=== PATIENT | male | born 1965 | race African-American/Black ===

== ENCOUNTER 2022-01-27 00:41 | Emergency (ER) | payer OTHER, SELFPAY ==
--- NOTE | ~2022-01-27 | XR_ITS ---
EXAMINATION: XR CHEST CLINICAL INFORMATION: Low suspicion for pulmonary edema. COMPARISON: None TECHNIQUE: Frontal view of the chest was obtained. FINDINGS: The lungs are well expanded. There is no focal consolidation, edema, or effusion. No pneumothorax. The cardiomediastinal silhouette is within normal limits. No acute osseous abnormality. XR/XR chest 1V IMPRESSION: No acute pulmonary finding.
--- NOTE | 2022-01-27 01:05 | ECG_ITS ---
Test Reason : AFIB Blood Pressure : / mmHG Vent. Rate : 071 BPM Atrial Rate : 071 BPM P-R Int : 158 ms QRS Dur : 094 ms QT Int : 404 ms P-R-T Axes : 063 057 064 degrees QTc Int : 439 ms Normal sinus rhythm Minimal voltage criteria for LVH, may be normal variant ( Sokolow-Garcia ) Borderline ECG No previous ECGs available Referred By: Deisy Neri Electronically Signed By:ZAYNAB MAHAN
[2022-01-27 01:08] VITALS: BP 108/62; BP 144/93; PULSE 149; PULSE 150; RESP 14; O2SAT 98; BMI 27.2
[2022-01-27] MEDS: 0.9 % Sodium Chloride 1,000 ML 999 ML IVCONT (01:27)
--- NOTE | 2022-01-27 01:29 | ED_ITS ---
HPI - Chest Pain General Chief Complaint: Chest Pain Stated Complaint: palpatations Time Seen by Provider: 01/27/22 01:04 Source: patient and EMS Mode of arrival: EMS Limitations: no limitations History of Present Illness HPI narrative: Patient comes to the emergency room complaining of palpitations that started 15 minutes prior to arrival. When EMS arrived, patient was complaining of ongoing palpitations, no chest pain or shortness of breath. According to the patient, this is the 1st time that he has the sensation. EMS did an EKG, showed atrial fibrillation with a heart rate in the 180s. Patient was given 20 mg Cardizem IV and 0.5 L of normal saline. When patient arrived to the emergency room he was s till in atrial fibrillation, heart rate between 120 and 160, blood pressure in the low 100s. Related Data Previous Rx's Medication Instructions Recorded apixaban 5 mg tablet (Eliquis) 5 mg PO BID #60 tabs 01/27/22 Allergies Allergy/AdvReac Type Severity Reaction Status Date / Time No Known Allergies Allergy Verified 01/27/22 01:04 Review of Systems 2 Review of Systems: Constitutional : No Weight loss, No Fever, No Chills, No Night Sweats, No Fatigue, No Malaise ENT/Mouth : No Hearing loss, No Ear Pain, No Nasal Congestion, No Sinus Pain, No Hoarseness, No sore throat, No Rhinorrhea, No Swallowing Difficulty Eyes: No Eye Pain, No Swelling, No Redness, No Foreign Body, No Discharge, No Vision Changes Cardiovascular : No Chest Pain, No SOB, No Dyspnea on Exertion, No Orthopnea, No Edema, complaining of palpitations Respiratory : No Cough, No Sputum, No Wheezing, No Smoke Exposure, No Dyspnea Gastrointestinal : No Nausea, No Vomiting, No Diarrhea, No Constipation, No abdominal Pain, No Hematochezia, No Melena Genitourinary : no irregular bleeding, No Dysuria, No Urinary Frequency, No Hematuria, No Urinary Incontinence, No Urgency, No Flank Pain, No Urinary Flow Changes, No Hesitancy Musculoskeletal : No joint pain, No Myalgias, No Joint Swelling Skin : No Skin Lesions, No rash Neuro : No Weakness, No Numbness, No Paresthesias, No Loss of Consciousness, No Dizziness, No Headache Psych : No Anxiety/Panic, No Depression, No SI/HI/AH/VH, No Social Issues, Heme/Lymph: No Bruising, No Bleeding,No Lymphadenopathy Endocrine : No Polyuria, No Polydipsia, No Temperature Intolerance, complaining of lumps in his thyroid, has surgery scheduled in approximately a month [facility] Past Medical History Medical History (Updated 01/27/22 @ 01:35 by Deisy Neri MD) Atrial fibrillation Diet-controlled diabetes mellitus Hypertension Social History Social History Advance Directives: Yes Advance Directives Information Provided: No Advance Directives on File: No Physical Exam Vital Signs: Vital Signs: Last Vital Signs Pulse 66 01/27/22 02:42 Resp 18 01/27/22 02:42 BP 143/96 H 01/27/22 02:42 Pulse Ox 98 01/27/22 02:42 O2 Del Method 01/27/22 02:42 BMI result Body Mass Index 27.2 Const: Other: Appearance: Alert. Oriented X3. No acute distress. Eyes: Pupils equal, round and reactive to light. ENT: Pharynx normal. Neck: Normal inspection. Neck supple. No lymph nodes noted. No crepitus CVS: Tachycardic, heart rate approximately 160, irregularly irregular, Normal S1 and S2 Respiratory: No respiratory distress. Breath sounds normal. No Wheezing. No rales Abdomen: Soft and nontender. No rigidity. No distention. Skin: Skin warm and dry. Normal skin color. Normal skin turgor. Extremities: No lower extremity edema. No Lacerations. No Rash Neuro: Oriented X 3. No motor deficit. No sensory deficit. Moving all extremities. No slurred speech. CN 2 through 12 grossly intact Psych: calm, cooperative, normal affect Course Course Course Narrative: Attacks were preparing to do the 1st EKG, patient converted into sinus rhythm. EKG taken shows sinus rhythm, occasional PVCs, heart rate 71, no ST segment depressions or elevations, QTC 439. Patient no longer having palpitations, blood pressure 144/93. All of patient's labs are pending. Patient's CHADS2 Vasc 2 score is 2. I discussed with the patient the risks versus benefits of anticoagulation. At this time, patient would like to have his anticoagulation medications sent to the pharmacy, but states that he needs to do some research over the next few hours when he gets home and discuss it with his family and then decide if he is going to pick it up. Patient will be given 1 dose of aspirin here in the emergency room. MDM - Chest Pain Lab Data Result diagrams: 01/27/22 01:32 01/27/22 01:32 Labs: Lab Results 01/27/22 01/27/22 01/27/22 Range/Units 01:31 01:31 01:31 WBC (4.8-10.8) X10*3/uL RBC (4.60-5.80) X10*6/uL Hgb (14.0-18.0) g/dl Hct (42.0-52.0) % MCV (80.0-98.0) fL MCH (27.0-33.0) pg MCHC (31.0-36.0) g/dl RDW (11.0-16.0) % Plt Count (160-400) X10*3/uL MPV (9.4-12.4) fL Immature Gran % (Auto) (0.0-0.4) % Neut % (Auto) (45-73) % Lymph % (Auto) (20-40) % [place] % (Auto) (2-11) % Eos % (Auto) (0-4) % Baso % (Auto) (0-2) % Lymph # (Auto) (1.2-4.9) X10*3/uL [place] # (Auto) (0.1-1.2) X10*3/uL Eos # (Auto) (0.0-0.4) X10*3/uL Baso # (Auto) (0.0-0.2) X10*3/uL Abs Immat Gran (auto) (0.00-0.03) X10*3/uL Absolute Neuts (auto) (2.0-8.3) x10*3/uL Absolute Nucleated RBC (0.0-0.012) X10*3/uL Nucleated RBC % (auto) (0.0-0.2) /100WBC PT 12.3 (10.0-13.1) SEC INR 1.1 (0.9-1.1) APTT (26.0-36.4) SEC Sodium (135-145) mmol/L Potassium (3.3-5.1) mmol/L Chloride (96-108) mmol/L Carbon Dioxide (22-29) mmol/L Anion Gap (12-20) BUN (9-16) mg/dL Creatinine (0.5-1.4) mg/dL Estim Creat Clear Calc Estimated GFR Random Glucose (60-115) mg/dL Calcium (8.4-10.2) mg/dL Magnesium (1.6-2.6) mg/dL Total Bilirubin (0.0-1.0) mg/dL Direct Bilirubin (0.0-0.5) mg/dL AST (5-37) U/L ALT (0-40) U/L Alkaline Phosphatase (39-117) U/L Troponin I High Sens (<3.5-35.0) ng/L B-Natriuretic Peptide 17 (<100) pg/mL Total Protein (6.5-8.0) g/dL Albumin (3.5-5.0) g/dL TSH 4.36 H (0.32-4.0) uIU/mL Free T4 1.26 (0.71-1.85) ng/dL Urine Color Urine Appearance Urine pH (5.0-9.0) Ur Specific [place] (1.005-1.025) Urine Protein (Neg-Trace) mg/dL Urine Glucose (UA) (Negative) mg/dL Urine Ketones (Negative) mg/dL Urine Blood (Negative) Urine Nitrite (Negative) Ur Leukocyte Esterase (Negative) Urine Opiates Screen (Not Detect) Urine Fentanyl Screen (Not Detect) Ur Barbiturates Screen (Not Detect) Ur Phencyclidine Scrn (Not Detect) Ur Amphetamines Screen (Not Detect) U Benzodiazepines Scrn (Not Detect) Urine Cocaine Screen (Not Detect) U Marijuana (THC) Screen (Not Detect) COVID-19 (BRANDI) (Negative) COVID-19 Clin Com 01/27/22 01/27/22 01/27/22 Range/Units 01:32 01:32 01:32 WBC 9.8 (4.8-10.8) X10*3/uL RBC 4.83 (4.60-5.80) X10*6/uL Hgb 14.3 (14.0-18.0) g/dl Hct 41.7 L (42.0-52.0) % MCV 86.3 (80.0-98.0) fL MCH 29.6 (27.0-33.0) pg MCHC 34.3 (31.0-36.0) g/dl RDW 13.2 (11.0-16.0) % Plt Count 379 (160-400) X10*3/uL MPV 9.4 (9.4-12.4) fL Immature Gran % (Auto) 0.3 (0.0-0.4) % Neut % (Auto) 56.7 (45-73) % Lymph % (Auto) 33.3 (20-40) % [place] % (Auto) 7.2 (2-11) % Eos % (Auto) 1.9 (0-4) % Baso % (Auto) 0.6 (0-2) % Lymph # (Auto) 3.3 (1.2-4.9) X10*3/uL [place] # (Auto) 0.7 (0.1-1.2) X10*3/uL Eos # (Auto) 0.2 (0.0-0.4) X10*3/uL Baso # (Auto) 0.1 (0.0-0.2) X10*3/uL Abs Immat Gran (auto) 0.03 (0.00-0.03) X10*3/uL Absolute Neuts (auto) 5.6 (2.0-8.3) x10*3/uL Absolute Nucleated RBC 0.000 (0.0-0.012) X10*3/uL Nucleated RBC % (auto) 0.0 (0.0-0.2) /100WBC PT (10.0-13.1) SEC INR (0.9-1.1) APTT 34.4 (26.0-36.4) SEC Sodium 141 (135-145) mmol/L Potassium 3.4 (3.3-5.1) mmol/L Chloride 104 (96-108) mmol/L Carbon Dioxide 26 (22-29) mmol/L Anion Gap 14 (12-20) BUN 14 (9-16) mg/dL Creatinine 0.81 (0.5-1.4) mg/dL Estim Creat Clear Calc 100.8 Estimated GFR > 60 Random Glucose 109 (60-115) mg/dL Calcium 8.9 (8.4-10.2) mg/dL Magnesium 2.0 (1.6-2.6) mg/dL Total Bilirubin 0.7 (0.0-1.0) mg/dL Direct Bilirubin 0.2 (0.0-0.5) mg/dL AST 19 (5-37) U/L ALT 21 (0-40) U/L Alkaline Phosphatase 90 (39-117) U/L Troponin I High Sens (<3.5-35.0) ng/L B-Natriuretic Peptide (<100) pg/mL Total Protein 7.3 (6.5-8.0) g/dL Albumin 4.1 (3.5-5.0) g/dL TSH (0.32-4.0) uIU/mL Free T4 (0.71-1.85) ng/dL Urine Color Urine Appearance Urine pH (5.0-9.0) Ur Specific [place] (1.005-1.025) Urine Protein (Neg-Trace) mg/dL Urine Glucose (UA) (Negative) mg/dL Urine Ketones (Negative) mg/dL Urine Blood (Negative) Urine Nitrite (Negative) Ur Leukocyte Esterase (Negative) Urine Opiates Screen (Not Detect) Urine Fentanyl Screen (Not Detect) Ur Barbiturates Screen (Not Detect) Ur Phencyclidine Scrn (Not Detect) Ur Amphetamines Screen (Not Detect) U Benzodiazepines Scrn (Not Detect) Urine Cocaine Screen (Not Detect) U Marijuana (THC) Screen (Not Detect) COVID-19 (BRANDI) (Negative) COVID-19 Clin Com 01/27/22 01/27/22 01/27/22 Range/Units 01:32 01:32 01:32 WBC (4.8-10.8) X10*3/uL RBC (4.60-5.80) X10*6/uL Hgb (14.0-18.0) g/dl Hct (42.0-52.0) % MCV (80.0-98.0) fL MCH (27.0-33.0) pg MCHC (31.0-36.0) g/dl RDW (11.0-16.0) % Plt Count (160-400) X10*3/uL MPV (9.4-12.4) fL Immature Gran % (Auto) (0.0-0.4) % Neut % (Auto) (45-73) % Lymph % (Auto) (20-40) % [place] % (Auto) (2-11) % Eos % (Auto) (0-4) % Baso % (Auto) (0-2) % Lymph # (Auto) (1.2-4.9) X10*3/uL [place] # (Auto) (0.1-1.2) X10*3/uL Eos # (Auto) (0.0-0.4) X10*3/uL Baso # (Auto) (0.0-0.2) X10*3/uL Abs Immat Gran (auto) (0.00-0.03) X10*3/uL Absolute Neuts (auto) (2.0-8.3) x10*3/uL Absolute Nucleated RBC (0.0-0.012) X10*3/uL Nucleated RBC % (auto) (0.0-0.2) /100WBC PT (10.0-13.1) SEC INR (0.9-1.1) APTT (26.0-36.4) SEC Sodium (135-145) mmol/L Potassium (3.3-5.1) mmol/L Chloride (96-108) mmol/L Carbon Dioxide (22-29) mmol/L Anion Gap (12-20) BUN (9-16) mg/dL Creatinine (0.5-1.4) mg/dL Estim Creat Clear Calc Estimated GFR Random Glucose (60-115) mg/dL Calcium (8.4-10.2) mg/dL Magnesium (1.6-2.6) mg/dL Total Bilirubin (0.0-1.0) mg/dL Direct Bilirubin (0.0-0.5) mg/dL AST (5-37) U/L ALT (0-40) U/L Alkaline Phosphatase (39-117) U/L Troponin I High Sens < 3.5 (<3.5-35.0) ng/L B-Natriuretic Peptide (<100) pg/mL Total Protein (6.5-8.0) g/dL Albumin (3.5-5.0) g/dL TSH (0.32-4.0) uIU/mL Free T4 (0.71-1.85) ng/dL Urine Color Yellow Urine Appearance Clear Urine pH 7.5 (5.0-9.0) Ur Specific [place] <= 1.005 (1.005-1.025) Urine Protein Negative (Neg-Trace) mg/dL Urine Glucose (UA) Negative (Negative) mg/dL Urine Ketones Negative (Negative) mg/dL Urine Blood Negative (Negative) Urine Nitrite Negative (Negative) Ur Leukocyte Esterase Negative (Negative) Urine Opiates Screen (Not Detect) Urine Fentanyl Screen (Not Detect) Ur Barbiturates Screen (Not Detect) Ur Phencyclidine Scrn (Not Detect) Ur Amphetamines Screen (Not Detect) U Benzodiazepines Scrn (Not Detect) Urine Cocaine Screen (Not Detect) U Marijuana (THC) Screen (Not Detect) COVID-19 (BRANDI) Negative (Negative) COVID-19 Clin Com See Note 01/27/22 Range/Units 01:32 WBC (4.8-10.8) X10*3/uL RBC (4.60-5.80) X10*6/uL Hgb (14.0-18.0) g/dl Hct (42.0-52.0) % MCV (80.0-98.0) fL MCH (27.0-33.0) pg MCHC (31.0-36.0) g/dl RDW (11.0-16.0) % Plt Count (160-400) X10*3/uL MPV (9.4-12.4) fL Immature Gran % (Auto) (0.0-0.4) % Neut % (Auto) (45-73) % Lymph % (Auto) (20-40) % [place] % (Auto) (2-11) % Eos % (Auto) (0-4) % Baso % (Auto) (0-2) % Lymph # (Auto) (1.2-4.9) X10*3/uL [place] # (Auto) (0.1-1.2) X10*3/uL Eos # (Auto) (0.0-0.4) X10*3/uL Baso # (Auto) (0.0-0.2) X10*3/uL Abs Immat Gran (auto) (0.00-0.03) X10*3/uL Absolute Neuts (auto) (2.0-8.3) x10*3/uL Absolute Nucleated RBC (0.0-0.012) X10*3/uL Nucleated RBC % (auto) (0.0-0.2) /100WBC PT (10.0-13.1) SEC INR (0.9-1.1) APTT (26.0-36.4) SEC Sodium (135-145) mmol/L Potassium (3.3-5.1) mmol/L Chloride (96-108) mmol/L Carbon Dioxide (22-29) mmol/L Anion Gap (12-20) BUN (9-16) mg/dL Creatinine (0.5-1.4) mg/dL Estim Creat Clear Calc Estimated GFR Random Glucose (60-115) mg/dL Calcium (8.4-10.2) mg/dL Magnesium (1.6-2.6) mg/dL Total Bilirubin (0.0-1.0) mg/dL Direct Bilirubin (0.0-0.5) mg/dL AST (5-37) U/L ALT (0-40) U/L Alkaline Phosphatase (39-117) U/L Troponin I High Sens (<3.5-35.0) ng/L B-Natriuretic Peptide (<100) pg/mL Total Protein (6.5-8.0) g/dL Albumin (3.5-5.0) g/dL TSH (0.32-4.0) uIU/mL Free T4 (0.71-1.85) ng/dL Urine Color Urine Appearance Urine pH (5.0-9.0) Ur Specific [place] (1.005-1.025) Urine Protein (Neg-Trace) mg/dL Urine Glucose (UA) (Negative) mg/dL Urine Ketones (Negative) mg/dL Urine Blood (Negative) Urine Nitrite (Negative) Ur Leukocyte Esterase (Negative) Urine Opiates Screen Not Detected (Not Detect) Urine Fentanyl Screen Not Detected (Not Detect) Ur Barbiturates Screen Not Detected (Not Detect) Ur Phencyclidine Scrn Not Detected (Not Detect) Ur Amphetamines Screen Not Detected (Not Detect) U Benzodiazepines Scrn Not Detected (Not Detect) Urine Cocaine Screen Not Detected (Not Detect) U Marijuana (THC) Screen POSITIVE H (Not Detect) COVID-19 (BRANDI) (Negative) COVID-19 Clin Com Critical Care Time Critical Care Time Critical Care Time: Yes Total Critical Care Time: 45 Attestation: I have personally provided critical care time. Time includes review of lab data, radiology results, discussion with consultants, and monitoring for potential decompensation. Intervention performed as documented. Discharge Plan Discharge Clinical Impression: Atrial fibrillation with RVR Patient Disposition: Home, Self-Care Instructions: Apixaban (By mouth), A-fib (Atrial Fibrillation) (ED) Additional Instructions: Please follow-up with your primary care physician tomorrow. If you have any worsening or new symptoms, please return to the emergency room or call 911 Prescriptions: New Eliquis 5 mg tablet 5 mg PO BID Qty: 60 0RF Referrals: Oswaldo Garcia MD [Physician] - 2 days Discharge Date/Time: 01/27/22 03:31
[2022-01-27 01:38] LABS: MANUAL DIFF FLAG NO
[2022-01-27 01:39] LABS: Basophils Absolute Auto 0.1 X10*3/uL (0.0-0.2); Basophils Percent Auto 0.6 % (0-2); Eosinophils Absolute Auto 0.2 X10*3/uL (0.0-0.4); Eosinophils Percent Auto 1.9 % (0-4); Hematocrit 41.7 % (42.0-52.0); Hemoglobin 14.3 g/dl (14.0-18.0); Imm Gran Abs Auto 0.03 X10*3/uL (0.00-0.03); Imm Gran Pct Auto 0.3 % (0.0-0.4); Lymphocytes Absolute Auto 3.3 X10*3/uL (1.2-4.9); Lymphocytes Percent Auto 33.3 % (20-40); Mean Corpuscular HGB Conc 34.3 g/dl (31.0-36.0); Mean Corpuscular Hemoglobin 29.6 pg (27.0-33.0); Mean Corpuscular Volume 86.3 fL (80.0-98.0); Mean Platelet Volume 9.4 fL (9.4-12.4); Monocytes Absolute Auto 0.7 X10*3/uL (0.1-1.2); Monocytes Percent Auto 7.2 % (2-11); Neutrophils Absolute Auto 5.6 x10*3/uL (2.0-8.3); Neutrophils Percent Auto 56.7 % (45-73); Platelet Count 379 X10*3/uL (160-400); Red Blood Count 4.83 X10*6/uL (4.60-5.80); Red Cell Distribution Width 13.2 % (11.0-16.0); White Blood Count 9.8 X10*3/uL (4.8-10.8)
[2022-01-27 01:40] LABS: Appearance Urine Clear; Color Urine Yellow; Glucose Urine UA Negative (Negative); Leukocyte Esterase Urine Negative (Negative); Nitrite Urine Negative (Negative); PH 7.5 (5.0-9.0); Specific Gravity - Urine <= 1.005 (1.005-1.025); Urine Blood Negative (Negative); Urine Ketones Negative (Negative); Urine Protein Negative (Neg-Trace)
[2022-01-27 01:47] LABS: INTERNATIONAL NORM RATIO 1.1 (0.9-1.1); Prothrombin Time 12.3 SEC (10.0-13.1)
[2022-01-27 01:49] LABS: Partial Thromboplastin Time 34.4 SEC (26.0-36.4)
[2022-01-27 01:56] LABS: Amphetamine Screen Urine Not Detected (Not Detect); Barbiturates, Urine Not Detected (Not Detect); Benzodiazepines Screen Urine Not Detected (Not Detect); COVID-19 Test Negative (Negative); Cannabinoid Screen Urine POSITIVE (Not Detect); Cocaine Screen Urine Not Detected (Not Detect); Fentanyl, urine Not Detected (Not Detect); Opiate Screen Urine Not Detected (Not Detect); Phencyclidine Screen Urine Not Detected (Not Detect)
[2022-01-27 01:58] LABS: Alanine Aminotransferase 21 U/L (0-40); Albumin Level 4.1 g/dL (3.5-5.0); Alkaline Phosphatase 90 U/L (39-117); Anion Gap 14 (12-20); Aspartate Amino Transferase 19 U/L (5-37); Bilirubin Direct 0.2 mg/dL (0.0-0.5); Bilirubin Total 0.7 mg/dL (0.0-1.0); Blood Urea Nitrogen 14 mg/dL (9-16); Calcium 8.9 mg/dL (8.4-10.2); Carbon Dioxide 26 mmol/L (22-29); Chloride 104 mmol/L (96-108); Creatinine Clr Calc Pharmacy 100.8; Estimated Glomerular Filt Rate > 60; Glucose Random 109 mg/dL (60-115); Potassium 3.4 mmol/L (3.3-5.1); Sodium 141 mmol/L (135-145); Total Protein 7.3 g/dL (6.5-8.0)
[2022-01-27 01:59] LABS: B Type Natriuretic Peptide 17 pg/mL (<100)
[2022-01-27 01:59] LABS: Troponin-I High Sensitivity < 3.5 ng/L (<3.5-35.0)
[2022-01-27 02:00] VITALS: PULSE 78
[2022-01-27 02:18] LABS: TSH reflex Free T4 4.36 uIU/mL (0.32-4.0)
[2022-01-27 02:42] VITALS: BP 143/96; PULSE 66; RESP 18; O2SAT 98
[2022-01-27 02:49] LABS: Free T4 (Free Thyroxine) 1.26 ng/dL (0.71-1.85)
[2022-01-27] MEDS: Aspirin Enteric Coated 325 MG TABLET.DR PO (03:33)
== END 2022-01-27 03:31 | disposition home or self-care (01) ==
PROVIDERS: Emergency Provider Emergency Medicine
DX: I48.20 Chronic atrial fibrillation, unspecified (principal); R07.89 Other chest pain; R00.2 Palpitations; Z20.822 Contact with and (suspected) exposure to COVID-19; Z79.899 Other long term (current) drug therapy
CPT/HCPCS: 36415; 71045; 80048; 80076; 80307; 81003; 83735; 83880; 84439; 84443; 84484; 85025; 85610; 85730; 87635; 93005; 99284

== ENCOUNTER 2023-07-01 21:57 | Emergency (ER) | payer OTHER, SELFPAY ==
--- NOTE | ~2023-07-01 | XR_ITS ---
EXAMINATION: XR CHEST CLINICAL INFORMATION: Chest pain COMPARISON: 01/27/2022 TECHNIQUE: 2 views of the chest were obtained. FINDINGS: There is mild elevation of the left hemidiaphragm posteriorly, similar to prior. No focal consolidation is seen bilaterally. No evidence of pneumothorax, pleural effusion, or pulmonary edema. The cardiomediastinal contour is unremarkable. No acute osseous findings are seen. XR/XR chest 2V IMPRESSION: No acute cardiopulmonary findings.
[2023-07-01 22:30] VITALS: BP 146/98; PULSE 103; RESP 12; TEMP 37.7; O2SAT 95; BMI 26.9
--- NOTE | 2023-07-01 22:36 | ECG_ITS ---
Test Reason : GEN MED Blood Pressure : / mmHG Vent. Rate : 096 BPM Atrial Rate : 096 BPM P-R Int : 150 ms QRS Dur : 076 ms QT Int : 340 ms P-R-T Axes : 055 030 067 degrees QTc Int : 429 ms Normal sinus rhythm Nonspecific T wave abnormality Abnormal ECG When compared with ECG of 27-JAN-2022 01:18, No significant change was found Referred By: Generic ED Physician Electronically Signed By:MARIVEL MCMILLAN
[2023-07-01 23:03] LABS: MANUAL DIFF FLAG NO
[2023-07-01 23:12] LABS: Basophils Percent Auto 0.1 % (0-2); Eosinophils Absolute Auto 0.1 X10*3/uL (0.0-0.4); Eosinophils Percent Auto 1.2 % (0-4); Hematocrit 44.8 % (42.0-52.0); Hemoglobin 15.4 g/dl (14.0-18.0); Imm Gran Abs Auto 0.06 X10*3/uL (0.00-0.03); Imm Gran Pct Auto 0.8 % (0.0-0.4); Lymphocytes Absolute Auto 0.7 X10*3/uL (1.2-4.9); Lymphocytes Percent Auto 8.5 % (20-40); Mean Corpuscular HGB Conc 34.4 g/dl (31.0-36.0); Mean Corpuscular Volume 84.4 fL (80.0-98.0); Mean Platelet Volume 9.6 fL (9.4-12.4); Monocytes Absolute Auto 0.5 X10*3/uL (0.1-1.2); Monocytes Percent Auto 6.6 % (2-11); Neutrophils Absolute Auto 6.4 x10*3/uL (2.0-8.3); Neutrophils Percent Auto 82.8 % (45-73); Platelet Count 373 X10*3/uL (160-400); Red Blood Count 5.31 X10*6/uL (4.60-5.80); Red Cell Distribution Width 14.6 % (11.0-16.0); White Blood Count 7.7 X10*3/uL (4.8-10.8)
[2023-07-01 23:22] LABS: Alanine Aminotransferase 23 U/L (0-40); Albumin Level 4.3 g/dL (3.5-5.0); Alkaline Phosphatase 99 U/L (39-117); Anion Gap 12 (12-20); Aspartate Amino Transferase 17 U/L (5-37); Bilirubin Total 1.1 mg/dL (0.0-1.0); Blood Urea Nitrogen 14 mg/dL (9-16); Carbon Dioxide 26 mmol/L (22-29); Chloride 105 mmol/L (96-108); Creatinine Clr Calc Pharmacy 87.6; Estimated Glomerular Filt Rate > 60; Glucose Random 123 mg/dL (60-115); Lipase 19 U/L (8-78); Potassium 3.7 mmol/L (3.3-5.1); Sodium 139 mmol/L (135-145); Total Protein 7.8 g/dL (6.5-8.0)
[2023-07-01 23:33] LABS: Troponin-I High Sensitivity < 2.7 ng/L (<3.5-35.0)
[2023-07-01 23:35] LABS: IDNOW Serial# 152EDE1D; Influenza A Negative (Negative); Influenza B2 Negative (Negative)
[2023-07-02 00:17] VITALS: BP 123/90; PULSE 96; TEMP 37.8; O2SAT 98
[2023-07-02 00:42] VITALS: PULSE 98
--- NOTE | 2023-07-02 00:44 | PC.NURSE ---
axox4 resports had L. sided cp/DUNN sharp pain yesterday sudden while driving resolved in seconds. overall feels fatigued/chills/1 episode of vomiting in am. pt denies cp/sob/n/v/d/dizziness at this time. reporting lower back pain/L. flank pain/DUNN. pt denies urinary sx. nsr on monitor 98 bpm. resp even and unlabored. pt reports had covid 05/09/23. awaiting primary eval by ed provider. call martin within reach.
--- NOTE | 2023-07-02 00:49 | ED_ITS ---
HPI - General Adult General Chief complaint: General Medical Stated complaint: flank pain, feels off Time Seen by Provider: 07/02/23 00:48 Source: patient Mode of arrival: ambulatory Limitations: no limitations History of Present Illness HPI narrative: Patient with multiple nonspecific complaints complaining of sharp chest pain just prior to arrival low back pain right side and left side earlier vomited once. Patient had COVID last month no cough no shortness of breath pain in the chest lasted only for few seconds ,no fever no chills no cough no palpitation patient has increased stress from his job take medication/ambien to sleep Related Data Previous Rx's Medication Instructions Recorded apixaban 5 mg tablet (Eliquis) 5 mg PO BID #60 tabs 01/27/22 Allergies Allergy/AdvReac Type Severity Reaction Status Date / Time No Known Allergies Allergy Verified 07/01/23 22:30 Review of Systems 2 Review of Systems: Yes all other systems are reviewed and are negative PMFSH Past Medical History Medical History Atrial fibrillation Diet-controlled diabetes mellitus Hypertension Social History Social History Smoked in Last 30 Days: No Use of substances other than those prescribed or required for medical reasons: No Advance Directives: No Advance Directives Information Provided: No Physical Exam ED Vital Signs: Vital Signs - 24 hr 07/01/23 22:30 07/02/23 00:17 07/02/23 00:42 Temperature 99.8 F 100.0 F Pulse Rate 103 H 96 Pulse Rate [Monitor] 98 Respiratory Rate 12 Blood Pressure 146/98 H 123/90 H Pulse Oximetry 95 98 Oxygen Delivery Method Room Air Room Air BMI result Body Mass Index 26.9 Appearance: Alert. Oriented X3. No acute distress. Eyes: PERRLA, No Nystagmus ENT: Pharynx normal. Oral Mucosa moist Neck: Normal inspection. Neck supple. CVS: Normal heart rate and rhythm. Pulses normal. Respiratory: No respiratory distress. Equal air entry bilateral, no wheezing/rales/rhonchi Abdomen: Soft and nontender. Bowel sounds are present, Skin: Skin warm and dry. Normal skin color. Normal skin turgor. Extremities: No lower extremity edema. No calf tenderness Neuro: Oriented X 3. Medical Decision Making Medical Decision Making MDM Narrative: Patient has multiple nonspecific complaints atypical chest pain likely musculoskeletal workup is negative discharge patient home Lab Data [facility] Lab Attestation statement: I reviewed the patient's lab results. 07/01/23 22:58 07/01/23 22:58 Labs: Lab Results 07/01/23 07/02/23 Range/Units 22:58 01:23 WBC 7.7 (4.8-10.8) X10*3/uL RBC 5.31 (4.60-5.80) X10*6/uL Hgb 15.4 (14.0-18.0) g/dl Hct 44.8 (42.0-52.0) % MCV 84.4 (80.0-98.0) fL MCH 29.0 (27.0-33.0) pg MCHC 34.4 (31.0-36.0) g/dl RDW 14.6 (11.0-16.0) % Plt Count 373 (160-400) X10*3/uL MPV 9.6 (9.4-12.4) fL Immature Gran % (Auto) 0.8 H (0.0-0.4) % Neut % (Auto) 82.8 H (45-73) % Lymph % (Auto) 8.5 L (20-40) % [place] % (Auto) 6.6 (2-11) % Eos % (Auto) 1.2 (0-4) % Baso % (Auto) 0.1 (0-2) % Lymph # (Auto) 0.7 L (1.2-4.9) X10*3/uL [place] # (Auto) 0.5 (0.1-1.2) X10*3/uL Eos # (Auto) 0.1 (0.0-0.4) X10*3/uL Baso # (Auto) 0.0 (0.0-0.2) X10*3/uL Abs Immat Gran (auto) 0.06 H (0.00-0.03) X10*3/uL Absolute Neuts (auto) 6.4 (2.0-8.3) x10*3/uL Absolute Nucleated RBC 0.000 (0.0-0.012) X10*3/uL Nucleated RBC % (auto) 0.0 (0.0-0.2) /100WBC Sodium 139 (135-145) mmol/L Potassium 3.7 (3.3-5.1) mmol/L Chloride 105 (96-108) mmol/L Carbon Dioxide 26 (22-29) mmol/L Anion Gap 12 (12-20) BUN 14 (9-16) mg/dL Creatinine 0.91 (0.5-1.4) mg/dL Estim Creat Clear Calc 87.6 Estimated GFR > 60 Random Glucose 123 H (60-115) mg/dL Calcium 9.0 (8.4-10.2) mg/dL Total Bilirubin 1.1 H (0.0-1.0) mg/dL AST 17 (5-37) U/L ALT 23 (0-40) U/L Alkaline Phosphatase 99 (39-117) U/L Troponin I High Sens < 2.7 (<3.5-35.0) ng/L Total Protein 7.8 (6.5-8.0) g/dL Albumin 4.3 (3.5-5.0) g/dL Lipase 19 (8-78) U/L Urine Color Dark Yellow Urine Appearance Clear Urine pH 6.0 (5.0-9.0) Ur Specific [place] >= 1.030 H (1.005-1.025) Urine Protein Trace (Neg-Trace) mg/dL Urine Glucose (UA) Negative (Negative) mg/dL Urine Ketones Trace (Negative) mg/dL Urine Blood Negative (Negative) Urine Nitrite Negative (Negative) Ur Leukocyte Esterase Small (1+) H (Negative) Urine RBC 3-5 H (0-2) /HPF Urine WBC 0-5 (0-5) /HPF Ur Squamous Epith Cells 3-5 (0-2) /HPF Urine Bacteria None Seen (None Seen) Hyaline Casts 0-2 (0-2) /LPF Influenza Type A (IPTER) Negative (Negative) Influenza Type B (PITER) Negative (Negative) Influenza A & B Note See Note Independent Interpretation I performed an independent interpretation of an: EKG Interpretation: Normal sinus rhythm heart rate 96 beats per minute normal interval normal axis no acute ST T wave changes no acute ischemia Discharge Plan Discharge Clinical Impression: Musculoskeletal pain, Anxiety Patient Disposition: Home, Self-Care Instructions: Musculoskeletal Pain (ED), Anxiety (ED) Additional Instructions: Likely you have job stress related anxiety Continue to take your medication, Tylenol/Motrin for pain as needed Prescriptions: No Action Eliquis 5 mg tablet 5 mg PO BID Qty: 60 0RF
[2023-07-02 01:34] LABS: Appearance Urine Clear; Color Urine Dark Yellow; Glucose Urine UA Negative (Negative); Leukocyte Esterase Urine Small (1+) (Negative); Nitrite Urine Negative (Negative); Specific Gravity - Urine >= 1.030 (1.005-1.025); UMIC TRIGGER UACC YES; Urine Blood Negative (Negative); Urine Ketones Trace mg/dL (Negative); Urine Protein Trace mg/dL (Neg-Trace)
[2023-07-02 01:43] LABS: Bacteria Urine None Seen (None Seen); Hyaline Casts Urine 0-2 /LPF (0-2); UACC Culture Trigger YES; WBC Urine 0-5 /HPF (0-5)
[2023-07-02] MEDS: Ibuprofen 600 MG TABLET PO (02:24)
== END 2023-07-02 02:27 | disposition home or self-care (01) ==
PROVIDERS: Emergency Provider Internal Medicine
DX: F41.9 Anxiety disorder, unspecified (principal); M79.18 Myalgia, other site; E11.9 Type 2 diabetes mellitus without complications; I10 Essential (primary) hypertension
CPT/HCPCS: 36415; 71046; 80053; 81001; 83690; 84484; 85025; 87086; 87502; 93005; 99283; 99285

== ENCOUNTER → 2023-07-01 22:36 | Outpatient (BNV) | payer OTHER, SELFPAY | PROVIDERS: Emergency Provider Internal Medicine; Visit Provider Internal Medicine | DX: R94.31 Abnormal electrocardiogram [ECG] [EKG] (principal) | CPT/HCPCS: 93010 ==

== ENCOUNTER 2023-12-19 07:26 | Emergency (ER) | payer MEDICAID, SELFPAY ==
--- NOTE | ~2023-12-19 | XR_ITS ---
EXAMINATION: XR PELVIS CLINICAL INFORMATION: Fell down, right-sided pelvic and hip pain COMPARISON: None available. TECHNIQUE: AP view of the pelvis. FINDINGS: No fracture. Hip joint spaces are maintained. Alignment is anatomic. Sacroiliac joints and pubic symphysis are normal. No abnormal soft tissue calcifications. XR/XR pelvis 1-2V IMPRESSION: Normal pelvis.
--- NOTE | ~2023-12-19 | XR_ITS ---
EXAMINATION: XR LUMBOSACRAL SPINE CLINICAL INFORMATION: Fell down, lumbar spine injury and pain COMPARISON: None available. TECHNIQUE: Three views of the lumbosacral spine. FINDINGS: The visualized lumbar vertebrae show anterior L5 on S1 displacement by 0.8 cm and bilateral L5 pars interarticulares bony defects. Intervertebral disc space is moderately decreased at L5-S1. XR/XR lumbar spine 2-3V IMPRESSION: 1. Grade 2 spondylolisthesis at L5-S1 with bilateral L5 spondylolysis. 2. Moderate L5-S1 degenerative lumbar disc disease. 3. No acute fracture or dislocation of lumbar spine is seen.
[2023-12-19 07:38] VITALS: BP 164/91; PULSE 87; RESP 16; TEMP 36.5; O2SAT 96; BMI 26.6
--- NOTE | 2023-12-19 07:47 | ED.FALL ---
HPI - Fall General Chief Complaint: Fall Stated Complaint: Fall Time Seen by Provider: 12/19/23 07:42 Source: patient Mode of arrival: ambulatory Limitations: no limitations History of Present Illness ED Provider: Remigio Guevara PA-C HPI Narrative: 58-year-old male presents to the ER for evaluation of right lower back pain and right inguinal pain after he tripped and fell while walking down stairs last night around 11:00 o'clock. He states thought he was at the bottom stair when he had 3 or 4 more ago, he states his legs got twisted up and he fell. He reports pain in his right lower back and his right groin since then. He has been ambulatory but this worsens the pain. He denies hitting his head or losing consciousness. He denies any headache or neck pain. No chest pain or abdominal pain. He is not on anticoagulation. He would like an increase in fracture anything. Denies any bowel or bladder incontinence. No trouble urinating. No blood in his urine. MD complaint: fall Onset (ago): hour(s) (8) Fall from: down stairs (#) (3-4) Fall witnessed: no Place fall occurred: home Loss of consciousness: none Prolonged down time: no Symptoms prior to fall: none Context: tripped/slipped Location of injury: back and pelvis Severity: moderate Severity scale (1-10): 6 Quality: aching Associated symptoms (after fall): denies Related Data Home Medications ?Medication ?Instructions ?Recorded ?Confirmed amlodipine 10 mg tablet 10 mg PO DAILY 12/19/23 12/19/23 spironolactone 25 mg tablet 25 mg PO DAILY 12/19/23 12/19/23 Previous Rx's ?Medication ?Instructions ?Recorded apixaban 5 mg tablet (Eliquis) 5 mg PO BID #60 tabs 01/27/22 cyclobenzaprine 10 mg tablet 10 mg PO TID PRN muscle spasm #10 12/19/23 tabs ibuprofen 600 mg tablet 600 mg PO Q8H PRN pain #14 tabs 12/19/23 lidocaine 5 % topical patch 1 patch topical DAILY #15 ea 12/19/23 Allergies Allergy/AdvReac Type Severity Reaction Status Date / Time No Known Allergies Allergy Verified 12/19/23 07:40 Review of Systems Review of Systems: Yes all other systems are reviewed and are negative PMFSH Past Medical History Medical History Atrial fibrillation Diet-controlled diabetes mellitus Hypertension Social History Social History Advance Directives: Yes Advance Directives Information Provided: Yes Advance Directives on File: No Physical Exam Vital Signs: Vital Signs: Last Vital Signs Temp 98.4 F 12/19/23 11:48 Pulse 80 12/19/23 11:48 Resp 16 12/19/23 11:48 BP 167/100 H 12/19/23 11:48 Pulse Ox 98 12/19/23 11:48 O2 Del Method Room Air 12/19/23 11:48 BMI result Body Mass Index 26.6 Appearance: Alert. Oriented X3. No acute distress. Head: normocephalic, atraumatic. Eyes: Pupils equal, round and reactive to light. ENT: Pharynx normal. No tonsillar swelling or exudate. Neck: Normal inspection. Neck supple. CVS: Normal heart rate and rhythm. Pulses normal. Respiratory: No respiratory distress. Breath sounds normal. Abdomen: Soft and nontender. +BS x4 Back: normal inspection, no ecchymosis. mild midline tenderness of the lower lumbar area. soft tissue tenderness of the right lumbar area w/ palpable spasm. Skin: Skin warm and dry. Normal skin color. Normal skin turgor. No rashes. Extremities: No lower extremity edema. No joint swelling. nontender right lateral hip. right proximal medial thigh with mild soft tissue tenderness. compartments are soft and compressible. pain with passive flexion of the right hip. FROM of the right knee and ankle Neuro/psych: Oriented X 3. No motor deficit. No sensory deficit. CN II-XII intact. Normal speech and cognition. Steady gait Medications Administered Discontinued Medications Generic Name Dose Route Start Last Admin Trade Name Freq PRN Reason Stop Dose Admin Acetaminophen 975 mg 12/19/23 11:36 12/19/23 11:43 Acetaminophen 325 Mg Tablet PO 12/19/23 11:37 975 mg ONCE ONE Administration Lidocaine 1 patch 12/19/23 11:36 12/19/23 11:43 Lidocaine 4 % Patch Adh..Patch TRANSDERMA 12/19/23 11:37 1 patch ONCE ONE Administration Protocol Medical Decision Making Medical Decision Making MDM Narrative: 58-year-old male presents to the ER for evaluation of right lower back pain and right groin pain after he tripped and fell down 4 stairs last night 23:00. No head strike or loss of consciousness. No on anticoagulation. He is ambulatory with a steady gait. He has some right lower back tenderness and tenderness of the right inguinal area. No involvement of his testicles or scrotum. Exam is most consistent muscular strain and spasm of the groin, likely lumbar strain. X-rays were done given fall, no acute fractures are noted. X-ray does show some spondylolisthesis, spondylosis in the L5 region. He has some moderate degenerative disc disease as well. We discussed the results of the x-ray and symptomatic management along with need for outpatient follow-up. Will provide prescriptions for NSAIDs, muscle relaxers, Lidoderm patches. Stable for discharge home with outpatient follow-up. Patient agrees with plan all questions were answered. Differential Diagnosis Differential Diagnoses: The differential diagnosis associated with the presentation includes lumbar muscle strain, nerve root compression, radiculopathy, plexopathy, degenerative disc disease, disc herniation, spinal stenosis, sacroiliac joint dysfunction, facet joint injury, inguinal strain Independent Interpretation I performed an independent interpretation of an: Plain X-Ray Interpretation: no acute compression fx or pelvic fx apprecaited, agree w/ radiology read Radiology Impression Discussion of test interpretation with radiology: I have reviewed the radiologist's reading. Radiologist Impression: EXAMINATION: XR LUMBOSACRAL SPINE CLINICAL INFORMATION: Fell down, lumbar spine injury and pain COMPARISON: None available. TECHNIQUE: Three views of the lumbosacral spine. FINDINGS: The visualized lumbar vertebrae show anterior L5 on S1 displacement by 0.8 cm and bilateral L5 pars interarticulares bony defects. Intervertebral disc space is moderately decreased at L5-S1. XR/XR lumbar spine 2-3V IMPRESSION: 1. Grade 2 spondylolisthesis at L5-S1 with bilateral L5 spondylolysis. 2. Moderate L5-S1 degenerative lumbar disc disease. 3. No acute fracture or dislocation of lumbar spine is seen. External Record Review External record reviewed: Outpatient record, Prior outpatient labs and Prior outpatient radiology Prescription Management I considered prescription management with: Pain Medication Critical Care Time Critical Care Time Critical Care Time: No Discharge Plan Discharge Clinical Impression: Strain of right groin Low back pain Qualifiers: Chronicity: acute Back pain laterality: right Sciatica presence: without sciatica Qualified Code(s): M54.50 - Low back pain, unspecified Patient Disposition: Home, Self-Care Instructions: Acute Low Back Pain (ED), Groin Strain (ED), Lower Back Exercises (ED) Additional Instructions: Your x-rays today did not show any acute fractures. Your pain is most likely due to muscle strain and spasm. No bending, lifting or twisting. Use ice several times per day for 20 minutes at a time for the next 48 hours and then change to heat. Take medications as prescribed to help with pain and discomfort. Follow up with your Primary Care Doctor this week. If your pain worsens, if you develop new numbness, tingling, weakness, loss of function or incontinence call 911 or come back to the ER right away for evaluation. EXAMINATION: XR LUMBOSACRAL SPINE CLINICAL INFORMATION: Fell down, lumbar spine injury and pain COMPARISON: None available. TECHNIQUE: Three views of the lumbosacral spine. FINDINGS: The visualized lumbar vertebrae show anterior L5 on S1 displacement by 0.8 cm and bilateral L5 pars interarticulares bony defects. Intervertebral disc space is moderately decreased at L5-S1. XR/XR lumbar spine 2-3V IMPRESSION: 1. Grade 2 spondylolisthesis at L5-S1 with bilateral L5 spondylolysis. 2. Moderate L5-S1 degenerative lumbar disc disease. 3. No acute fracture or dislocation of lumbar spine is seen. Prescriptions: New cyclobenzaprine 10 mg tablet 10 mg PO TID PRN (Reason: muscle spasm) Qty: 10 0RF ibuprofen 600 mg tablet 600 mg PO Q8H PRN (Reason: pain) Qty: 14 0RF lidocaine 5 % adhesive patch,medicated 1 patch topical DAILY Qty: 15 0RF Rx Instructions: leave on most painful area for up to 12 hrs No Action Eliquis 5 mg tablet 5 mg PO BID Qty: 60 0RF spironolactone 25 mg tablet 25 mg PO DAILY amlodipine 10 mg tablet 10 mg PO DAILY Referrals: Jacey Martines MD [Primary Care Provider] - Ellis Persaud MD, PhD [Physician] - Print Language: Yoruba
[2023-12-19] MEDS: Lidocaine 4 % Patch ADH..PATCH 1 PATCH TRANSDERMA (11:43)
[2023-12-19] MEDS: Acetaminophen 325 MG TABLET 975 MG PO (11:43)
[2023-12-19 11:48] VITALS: BP 167/100; PULSE 80; RESP 16; TEMP 36.9; O2SAT 98
[2023-12-19 12:13] VITALS: BP 167/100; PULSE 80; RESP 16; TEMP 36.9; O2SAT 98
== END 2023-12-19 12:13 | disposition home or self-care (01) ==
PROVIDERS: Emergency Provider Emergency Medicine; PCP Family Medicine
DX: M54.50 Low back pain, unspecified (principal); S33.9XXA Sprain of unspecified parts of lumbar spine and pelvis, initial encounter; W10.8XXA Fall (on) (from) other stairs and steps, initial encounter; Y93.89 Activity, other specified; Y92.008 Other place in unspecified non-institutional (private) residence as the place of occurrence of the external cause; Y99.9 Unspecified external cause status; E11.9 Type 2 diabetes mellitus without complications; I10 Essential (primary) hypertension; I48.91 Unspecified atrial fibrillation; Z79.01 Long term (current) use of anticoagulants; Z79.899 Other long term (current) drug therapy
CPT/HCPCS: 72100; 72170; 99283; 99284

== ENCOUNTER 2023-12-29 15:03 | Outpatient (AMB) | payer MEDICAID, SELFPAY ==
--- NOTE | 2023-12-29 14:29 | A.SPINEOV_ITS ---
Intake Visit Reasons: ED f/u Intake Note: Mr. Dominguez is here today c/o Low back pain. Marketing Intelligence Analyst Required: No Allergies No Known Allergies Allergy (Verified 12/29/23 15:09) Assessment & Plan Assessment & Plan (1) Back pain: Code(s): M54.9 - Dorsalgia, unspecified Category: Medical Plan Dear colleague, Thank you for referring Dylan to our office today. He is a pleasant 58-year-old male who comes in today with a chief complaint of back pain and some medial thigh pain. He states this has been ongoing since a fall on 12/18 down a few stairs. He was evaluated in the emergency department and discharged home with some muscle relaxers, NSAIDs, and lidocaine patches. He was referred to our office for a x-ray read that stated he has both a pars defect at L5 and a spondylolysis (grade 2) at L5-S1. He denies any significant radicular pain, and states that his pain is well localized to his right low back/hip and medial right thigh. He denies any numbness/tingling/burning/weakness. PMH: AFIB, HTN. Thyroidectomy. Social hx: Patient does not smoke, reports no substance use. Medications: Amlodipine, apixaban, cyclobenzaprine, ibuprofen, lidocaine patches, spironolactone. Allergies: NKDA. Physical exam: The patient has 5/5 strength in his upper & lower extremities. He has no sensational deficits. His relfexes are 2+ intact. (-) Wadsworth's, (-) Clonus, (-) bilateral straight leg raise, (-) Jeniffer's. Imaging review: There is a pars defect at L5 noted on lumbar X-ray. I do not believe there is a grade 2 spondylolisthesis present at L5-S1. I would call it a possible grade 1 spondylolisthesis at most. Impression: Dylan is a pleasant 58-year-old male who comes in today with a chief complaint of low back pain and medial thigh pain after a fall down a few stairs 10 days ago. He denies any neurological deficits, has no radicular pain, and no evidence of significant instability in the lumbar spine. He also had no symptoms prior to the fall, despite likely having his pars interarticularis defect for quite some time. He has not attempted any conservative treatments as of yet for his back pain. I discussed this with the patient and he seemed willing to try a course of physical therapy. I encouraged him to follow up with his primary care/orthopedics after physical therapy. Thank you for allowing us to care for your patient. The total time spent with this visit with this patient was 45 minutes reviewing history, physical exam, MRI imaging review, and implementation of treatment plan or further diagnostic testing Huber Persaud MD,PhD [facility] Orders: Orders PT Evaluation and Treatment Today M54.9 - Dorsalgia, unspecified Coding Level of Care Code New Pt Level 4 (03157) Diagnoses Back pain M54.9
== END 2023-12-29 15:59 | disposition home or self-care (01) ==
PROVIDERS: PCP Family Medicine; Visit Provider Physician Assistant
DX: M54.9 Dorsalgia, unspecified (principal)
CPT/HCPCS: 99204

== ENCOUNTER → 2023-12-29 15:03 | Outpatient (BNVA) | payer MEDICAID, SELFPAY | PROVIDERS: PCP Family Medicine; Visit Provider Physician Assistant | DX: M54.9 Dorsalgia, unspecified (principal) | CPT/HCPCS: 99202 ==

== ENCOUNTER 2024-07-26 11:00 | Emergency (ER) | payer MEDICAID, SELFPAY ==
--- NOTE | ~2024-07-26 | XR_ITS ---
EXAMINATION: XR CHEST CLINICAL INFORMATION: pain COMPARISON: July 01, 2023. TECHNIQUE: Frontal view of the chest was obtained. FINDINGS: No consolidation, pleural effusion or pneumothorax. No hyperinflation. Cardiomediastinal silhouette size is normal. There is a cylindrical shaped device overlapping the left lower hemithorax. Osseous structures are intact. XR/XR chest 1V IMPRESSION: No acute airspace disease. Electronically signed by: Costa Lee MD 07/26/2024 12:17 PM EDT
--- NOTE | 2024-07-26 11:03 | ECG_ITS ---
Test Reason : cp Blood Pressure : */* mmHG Vent. Rate : 65 BPM Atrial Rate : 65 BPM P-R Int : 164 ms QRS Dur : 84 ms QT Int : 412 ms P-R-T Axes : 48 26 56 degrees QTcB Int : 428 ms Normal sinus rhythm Minimal voltage criteria for LVH, may be normal variant ( Sokolow-Garcia ) Nonspecific T wave abnormality Abnormal ECG When compared with ECG of 01-Jul-2023 22:51, No significant change was found Referred By: Elena Cohen Electronically Signed By: DARNELL COBURN MD
[2024-07-26 11:31] VITALS: BP 148/79; PULSE 63; RESP 16; TEMP 36.7; O2SAT 97; BMI 29.1
--- NOTE | 2024-07-26 11:32 | ED_ITS ---
HPI - General Adult General Chief complaint: Chest Pain Stated complaint: chest pain heart issues Time Seen by Provider: 07/26/24 18:36 Source: patient Limitations: no limitations History of Present Illness ED Provider: Kimberly Gao PA-C HPI narrative: 59-year-old male with a history hypertension, AFib on Eliquis, diabetes who presents with palpitations and chest pain. Patient states he has a loop monitor, he felt fluttering and tightness in his chest. The incident was transient. Denies associated diaphoresis, nausea, vomiting, shortness of breath. No recent cough or cold symptoms. Related Data Home Medications ?Medication ?Instructions ?Recorded ?Confirmed amlodipine 10 mg tablet 10 mg PO DAILY 12/19/23 12/19/23 spironolactone 25 mg tablet 25 mg PO DAILY 12/19/23 12/19/23 Previous Rx's ?Medication ?Instructions ?Recorded apixaban 5 mg tablet (Eliquis) 5 mg PO BID #60 tabs 01/27/22 cyclobenzaprine 10 mg tablet 10 mg PO TID PRN muscle spasm #10 12/19/23 tabs ibuprofen 600 mg tablet 600 mg PO Q8H PRN pain #14 tabs 12/19/23 lidocaine 5 % topical patch 1 patch topical DAILY #15 ea 12/19/23 Allergies Allergy/AdvReac Type Severity Reaction Status Date / Time No Known Allergies Allergy Verified 07/26/24 11:35 Review of Systems 2 Review of Systems: Yes all other systems are reviewed and are negative Constitutional: Constitutional: Denies fatigue and Denies fever(s) ENT: Denies dizziness Cardiovascular: Cardiovascular: Reports chest pain, Reports palpitations and Denies dyspnea Respiratory: Respiratory: Denies dyspnea Gastrointestinal: Gastrointestinal: Denies nausea and Denies vomiting Neurologic: Denies dizziness Endocrine: Endocrine: Denies fatigue and Reports palpitations PMFSH Past Medical History Attestation statement: The following information was validated with the patient. Medical History Atrial fibrillation Diet-controlled diabetes mellitus Hypertension Social History Social History Advance Directives: No Advance Directives Information Provided: Yes Physical Exam ED Vital Signs: Vital Signs - 24 hr 07/26/24 11:31 Temperature 98.0 F Pulse Rate 63 Respiratory Rate 16 Blood Pressure 148/79 H Pulse Oximetry 97 Oxygen Delivery Method Room Air BMI result Body Mass Index 29.1 Const Other: Alert well-appearing, eating [employer] in the waiting room Orientation/consciousness: patient oriented x3 Resp Effort & Inspection: normal respiratory effort Cardio Other: Normal peripheral perfusion Skin Other: Warm dry no rash Neuro General: patient oriented x3, gait normal, no focal motor deficits and CN's II- XI intact bilaterally Psych Other: Calm cooperative Course Course Course Narrative: This is a rapid medical exam performed by Kimberly Gao PA-C. The patient is a 59-year-old mal with a history hypertension, AFib on Eliquis, diabetes who presents with palpitations and chest pain. We will be screening basic labs, troponin, EKG and chest x-ray. The patient is stable and can return to the waiting room pending his full medical assessment. Medical Decision Making Medical Decision Making MDM Narrative: 59-year-old male with a history hypertension, AFib on Eliquis, diabetes who presents with palpitations and chest pain. Patient states he has a loop monitor, he felt fluttering and tightness in his chest. The incident was transient. Denies associated diaphoresis, nausea, vomiting, shortness of breath. No recent cough or cold symptoms. Problem: AFib, hypertension, diabetes History: Per patient I have considered the following differential diagnoses: Palpitations, ACS, electrolyte abnormality, dehydration, anemia Plan: Screening labs including a cardiac enzymes EKG and chest x-ray were obtained. Thus far his cardiac assessment was normal. I do not believe this is ACS, patient was having chest discomfort in the setting of detecting his palpitations. There were no underlying organic factors that could have precipitated his symptoms; dehydration, anemia, electrolyte abnormality. I have independently reviewed the following tests: Labs: No leukocytosis, not anemic, no electrolyte abnormality, troponin negative EKG: Normal sinus rhythm, rate of 65, no ischemic changes no ectopy when compared to prior study Chest x-ray: XR/XR chest 1V IMPRESSION: No acute airspace disease. Lab Data 07/26/24 12:36 07/26/24 12:36 Labs: Lab Results 07/26/24 Range/Units 12:36 WBC 9.6 (4.8-10.8) X10*3/uL RBC 4.66 (4.60-5.80) X10*6/uL Hgb 13.7 L (14.0-18.0) g/dl Hct 39.8 L (42.0-52.0) % MCV 85.4 (80.0-98.0) fL MCH 29.4 (27.0-33.0) pg MCHC 34.4 (31.0-36.0) g/dl RDW 14.0 (11.0-16.0) % Plt Count 338 (160-400) X10*3/uL MPV 9.2 L (9.4-12.4) fL Immature Gran % (Auto) 0.2 (0.0-0.4) % Neut % (Auto) 57.3 (45-73) % Lymph % (Auto) 32.1 (20-40) % Terry % (Auto) 6.9 (2-11) % Eos % (Auto) 2.8 (0-4) % Baso % (Auto) 0.7 (0-2) % Lymph # (Auto) 3.1 (1.2-4.9) X10*3/uL Terry # (Auto) 0.7 (0.1-1.2) X10*3/uL Eos # (Auto) 0.3 (0.0-0.4) X10*3/uL Baso # (Auto) 0.1 (0.0-0.2) X10*3/uL Abs Immat Gran (auto) 0.02 (0.00-0.03) X10*3/uL Absolute Neuts (auto) 5.5 (2.0-8.3) x10*3/uL Absolute Nucleated RBC 0.000 (0.0-0.012) X10*3/uL Nucleated RBC % (auto) 0.0 (0.0-0.2) /100WBC Sodium 138 (135-145) mmol/L Potassium 3.7 (3.3-5.1) mmol/L Chloride 107 (96-108) mmol/L Carbon Dioxide 26 (22-29) mmol/L Anion Gap 9 L (12-20) BUN 12 (9-16) mg/dL Creatinine 0.83 (0.5-1.4) mg/dL Estim Creat Clear Calc 105.1 Estimated GFR > 60 Random Glucose 107 (60-115) mg/dL Calcium 8.6 (8.4-10.2) mg/dL Magnesium 2.0 (1.6-2.6) mg/dL Total Bilirubin 0.8 (0.0-1.0) mg/dL AST 24 (5-37) U/L ALT 34 (0-40) U/L Alkaline Phosphatase 88 (39-117) U/L Troponin I High Sens < 2.7 (<3.5-35.0) ng/L Total Protein 7.1 (6.5-8.0) g/dL Albumin 4.0 (3.5-5.0) g/dL Discharge Plan Discharge Clinical Impression: Palpitations, Chest pain Patient Disposition: Home, Self-Care Instructions: Chest Pain (ED), Heart Palpitations (ED) Additional Instructions: All of your screening labs including a cardiac enzymes were normal. There were no concerning changes on the EKG in the chest x-ray is clear. Continue to follow up with your dehydrator tender, call tomorrow to schedule an appointment. Prescriptions: No Action Eliquis 5 mg tablet 5 mg PO BID Qty: 60 0RF spironolactone 25 mg tablet 25 mg PO DAILY amlodipine 10 mg tablet 10 mg PO DAILY cyclobenzaprine 10 mg tablet 10 mg PO TID PRN (Reason: muscle spasm) Qty: 10 0RF ibuprofen 600 mg tablet 600 mg PO Q8H PRN (Reason: pain) Qty: 14 0RF lidocaine 5 % adhesive patch,medicated 1 patch topical DAILY Qty: 15 0RF Rx Instructions: leave on most painful area for up to 12 hrs Stand Alone Forms: Work/School Release Interventions: ED Discharge Assessment Last Done: 07/26/24 18:52 Print Language: Luxembourgish
[2024-07-26 12:53] LABS: MANUAL DIFF FLAG NO
[2024-07-26 12:54] LABS: Basophils Absolute Auto 0.1 X10*3/uL (0.0-0.2); Basophils Percent Auto 0.7 % (0-2); Eosinophils Absolute Auto 0.3 X10*3/uL (0.0-0.4); Eosinophils Percent Auto 2.8 % (0-4); Hematocrit 39.8 % (42.0-52.0); Hemoglobin 13.7 g/dl (14.0-18.0); Imm Gran Abs Auto 0.02 X10*3/uL (0.00-0.03); Imm Gran Pct Auto 0.2 % (0.0-0.4); Lymphocytes Absolute Auto 3.1 X10*3/uL (1.2-4.9); Lymphocytes Percent Auto 32.1 % (20-40); Mean Corpuscular HGB Conc 34.4 g/dl (31.0-36.0); Mean Corpuscular Hemoglobin 29.4 pg (27.0-33.0); Mean Corpuscular Volume 85.4 fL (80.0-98.0); Mean Platelet Volume 9.2 fL (9.4-12.4); Monocytes Absolute Auto 0.7 X10*3/uL (0.1-1.2); Monocytes Percent Auto 6.9 % (2-11); Neutrophils Absolute Auto 5.5 x10*3/uL (2.0-8.3); Neutrophils Percent Auto 57.3 % (45-73); Platelet Count 338 X10*3/uL (160-400); Red Blood Count 4.66 X10*6/uL (4.60-5.80); White Blood Count 9.6 X10*3/uL (4.8-10.8)
[2024-07-26 13:10] LABS: Alanine Aminotransferase 34 U/L (0-40); Alkaline Phosphatase 88 U/L (39-117); Anion Gap 9 (12-20); Aspartate Amino Transferase 24 U/L (5-37); Bilirubin Total 0.8 mg/dL (0.0-1.0); Blood Urea Nitrogen 12 mg/dL (9-16); Calcium 8.6 mg/dL (8.4-10.2); Carbon Dioxide 26 mmol/L (22-29); Chloride 107 mmol/L (96-108); Creatinine Clr Calc Pharmacy 105.1; Estimated Glomerular Filt Rate > 60; Glucose Random 107 mg/dL (60-115); Potassium 3.7 mmol/L (3.3-5.1); Sodium 138 mmol/L (135-145); Total Protein 7.1 g/dL (6.5-8.0)
[2024-07-26 13:18] LABS: Troponin-I High Sensitivity < 2.7 ng/L (<3.5-35.0)
[2024-07-26 18:52] VITALS: BP 148/79; PULSE 63; RESP 16; TEMP 36.7; O2SAT 97
== END 2024-07-26 18:53 | disposition home or self-care (01) ==
PROVIDERS: Physician Assistant Medical; Emergency Provider Emergency Medicine Emergency Medical Services; PCP Family Medicine
DX: R07.89 Other chest pain (principal); I48.91 Unspecified atrial fibrillation; R00.2 Palpitations; Z79.01 Long term (current) use of anticoagulants; Z79.899 Other long term (current) drug therapy
CPT/HCPCS: 36415; 71045; 80053; 83735; 84484; 85025; 93005; 99283

== ENCOUNTER → 2024-07-26 11:03 | Outpatient (BNV) | payer MEDICAID, SELFPAY | PROVIDERS: Emergency Provider Emergency Medicine Emergency Medical Services; PCP Family Medicine; Visit Provider Internal Medicine Cardiovascular Disease | DX: R94.31 Abnormal electrocardiogram [ECG] [EKG] (principal); R07.9 Chest pain, unspecified | CPT/HCPCS: 93010 ==

== ENCOUNTER → 2024-07-26 11:32 | Outpatient (BNV) | payer MEDICAID, SELFPAY | PROVIDERS: PCP Family Medicine; Visit Provider Radiology Diagnostic Radiology | DX: R07.9 Chest pain, unspecified (principal) | CPT/HCPCS: 71045 ==